=== PATIENT | male | born 1970 | race African-American/Black ===

== ENCOUNTER 2018-12-01 10:04 | Emergency (ER) | payer OTHER, SELFPAY ==
[2018-12-01] MEDS ORDERED: Oxymetazoline HCl 0.05% ( 15 ML ) ONE (10:21)
[2018-12-01 10:44] LABS: #Basophils 0.1 thou/uL (0.0-0.2); #Eosinphils 0.1 thou/uL (0.0-0.7); #Lymphocytes 0.5 thou/uL (1.20-3.40); #Neutrophils 5.5 thou/uL (1.40-6.50); %Basophils 1.6 % (0.0-1.0); %Eosinophils 1.7 % (0.0-10.0); %Lymphocytes 7.4 % (21.0-51.0); %Monocytes 13.8 % (0.0-10.0); %Neutrophils 75.5 % (42.0-75.0); Hemoglobin 15.6 g/dL (14.0-18.0); Mean Corpuscular HGB CONC 34.6 g/dL (32.0-36.0); Mean Corpuscular Hemoglobin 30.7 pg (27.0-31.0); Mean Corpuscular Volume 88.8 fL (78.0-98.0); Mean Platelet Volume 11.2 fL (7.4-10.4); Platelet Count 132 thou/uL (130-400); RBC Distribution Width 11.2 % (11.5-14.5); Red Blood Cell (RBC) Count 5.09 mill/uL (4.70-6.10); White Blood Cell (WBC) Count 7.2 thou/uL (4.8-10.8)
[2018-12-01] MEDS ORDERED: Acetaminophen 325 MG TAB ONE (10:52)
--- NOTE | 2018-12-01 10:52 | RAD ---
EXAM: Portable chest PROVIDED CLINICAL HISTORY: Chest pain COMPARISON: 08/22/2012 FINDINGS: Cardiac and mediastinal silhouette is within normal limits. No focal consolidation, pleural fluid or pneumothorax evident. IMPRESSION: No evidence for an acute cardiopulmonary process.
[2018-12-01 10:59] LABS: ALT (SGPT) 31 U/L (8-55); AST (SGOT) 32 U/L (5-34); Albumin 3.9 g/dL (3.5-5.0); Alkaline Phosphatase 114 U/L (40-150); Anion Gap 18 mmol/L (10-20); BUN (Urea Nitrogen) 15 mg/dL (8.9-20.6); Calc. Creatinine Clearance 0 mL/min (70-130); Calcium 9.7 mg/dL (7.8-10.44); Carbon Dioxide 25 mmol/L (22-29); Chloride 100 mmol/L (98-107); Estimated GFR-MDRD 57; Globulin 3.6 g/dL (2.4-3.5); Glucose 293 mg/dL (70-105); Protein, Total 7.5 g/dL (6.0-8.3); Sodium 139 mmol/L (136-145)
[2018-12-01] MEDS ORDERED: Dexamethasone 10 MG/ML VIAL ONE (11:17)
[2018-12-01] MEDS ORDERED: Ondansetron PF 4 MG/2 ML Vial ONE (11:18)
[2018-12-01] MEDS ORDERED: Dexamethasone 4 mg/ml Vial ONE (11:18)
[2018-12-01] MEDS ORDERED: Aspirin Chewable 81 MG TAB ONE (12:06)
[2018-12-01] MEDS ORDERED: Lidocaine Viscous Sol 2% 15 ml UD Cup ONE (12:06)
== END 2018-12-01 13:06 | disposition home or self-care (01) ==
LOC: SCSER 10:04
DX: B34.9 Viral infection, unspecified (principal); J02.9 Acute pharyngitis, unspecified; R04.0 Epistaxis; R06.2 Wheezing; E11.9 Type 2 diabetes mellitus without complications; E78.00 Pure hypercholesterolemia, unspecified; E11.40 Type 2 diabetes mellitus with diabetic neuropathy, unspecified; Z79.899 Other long term (current) drug therapy; Z79.84 Long term (current) use of oral hypoglycemic drugs
CPT/HCPCS: 71045; 80053; 83605; 84484; 85025; 87081; 87430; 87804; 93005; 96361; 96374; J1100; J2405; J7620

== ENCOUNTER 2022-07-17 01:21 | Emergency (ER) | payer OTHER | END 2022-07-17 02:54 | LOC: ERS 01:21 | DX: R07.89 Other chest pain (principal); I10 Essential (primary) hypertension; E11.9 Type 2 diabetes mellitus without complications; Z79.899 Other long term (current) drug therapy; Z79.84 Long term (current) use of oral hypoglycemic drugs | CPT/HCPCS: 36416; 71045; 84484; 93005 ==

== ENCOUNTER 2024-04-03 19:46 | Emergency (ER) | payer OTHER, SELFPAY ==
[2024-04-03] MEDS ORDERED: Gabapentin 100 MG CAP ONE (20:35)
[2024-04-03 20:38] LABS: Hematocrit 42.4 % (42.0-52.0); Mean Corpuscular HGB CONC 35.4 g/dL (32.0-36.0); Mean Corpuscular Hemoglobin 30.2 pg (27.0-31.0); Mean Corpuscular Volume 85.3 fL (78.0-98.0); Mean Platelet Volume 11.9 fL (7.4-10.4); Platelet Count 160 10x3/uL (130-400); Red Blood Cell (RBC) Count 4.97 mill/uL (4.70-6.10)
[2024-04-03 20:56] LABS: Troponin I Less than 0.010 ng/mL (< 0.028)
[2024-04-03 20:58] LABS: ALT (SGPT) 20 U/L (8-55); AST (SGOT) 21 U/L (5-34); Albumin 3.5 g/dL (3.5-5.0); Alkaline Phosphatase 191 U/L (40-110); Anion Gap 18 mmol/L (10-20); BUN (Urea Nitrogen) 12 mg/dL (8.4-25.7); Bilirubin, Total 0.9 mg/dL (0.2-1.2); CK (CPK) 168 U/L (30-200); Calc. Creatinine Clearance 0 mL/min (70-130); Calcium 8.9 mg/dL (7.8-10.44); Carbon Dioxide 21 mmol/L (22-29); Chloride 91 mmol/L (98-107); Eosinophils 2 % (0-10); Estimated GFR 49; Globulin 4.5 g/dL (2.4-3.5); Glucose 833 mg/dL (70-105); Large Platelets 11.6 % (0-5); Lipase 66 U/L (8-78); Lymphocytes 21 % (21-51); Magnesium 1.9 mg/dL (1.6-2.6); Monocytes 7 % (0-10); Neutrophil 67 % (42-75); Platelet Adequacy Comment Platelets Normal; Reactive Lymphocytes 2 % (0-10); Smudge Cells 61.1 %; Sodium 126 mmol/L (136-145); Tear Drops SLIGHT = 2-5 cells HPF (0-1)
[2024-04-03 21:16] LABS: Phosphorus 3.5 mg/dL (2.3-4.7)
[2024-04-03 21:52] LABS: Actual Bicarbonate (HCO3v) 25.1 mEq/L (22-28); Calcium, Ionized (venous) 1.12 mmol/L (1.16-1.32); Chloride (VBG) 94 mmol/L (98-106); Hematocrit-VBG 46 % (42.0-52.0); Hemoglobin (Hb) 15.5 g/dL (13.1-17.2); Potassium (VBG) 4.14 mmol/L (3.70-5.30); Sodium 132 mmol/L (133-146); pH (venous) 7.434 (7.32-7.43)
[2024-04-03 22:38] LABS: Bacteria/HPF None Seen HPF (None Seen); Bilirubin Negative (Negative); Blood, Urine 1+ (Negative); CAUTI Indications for Culture Pelvic or flank pain; Clarity Clear (Clear); Glucose, Urine (Dipstick) Greater than 1000 mg/dL (Negative); Ketone, Urine Negative (Negative); Leukocyte Negative Leu/uL (Negative); Nitrite Negative (Negative); Protein, Urine (Dipstick) 30 mg/dL (Neg-Trace); RBC/HPF 0-3 HPF (0-3); Specific Gravity, Urine 1.034 (1.002-1.036); Squamous Epithelial None Seen HPF (0-3); Urobilinogen Normal mg/dL (Less than 2); WBC/HPF 0-3 HPF (0-3); pH, Urine 5.5 (5.0-9.0)
[2024-04-03 22:39] LABS: Urine Culture Reflex No No
[2024-04-03 23:07] LABS: Lactic Acid 1.53 mmol/L (0.5-2.2)
[2024-04-03] MEDS ORDERED: metFORMIN 500 MG TAB PO SCH (23:45)
[2024-04-04 00:30] LABS: Anion Gap 12 mmol/L (10-20); BUN (Urea Nitrogen) 12 mg/dL (8.4-25.7); Calc. Creatinine Clearance 0 mL/min (70-130); Calcium 8.5 mg/dL (7.8-10.44); Carbon Dioxide 23 mmol/L (22-29); Chloride 99 mmol/L (98-107); Estimated GFR 70; Glucose 555 mg/dL (70-105); Potassium 3.9 mmol/L (3.5-5.1); Sodium 130 mmol/L (136-145)
== END 2024-04-04 00:47 | disposition home or self-care (01) ==
LOC: ERS 19:46
DX: E11.65 Type 2 diabetes mellitus with hyperglycemia (principal); I10 Essential (primary) hypertension
CPT/HCPCS: 36415; 36416; 70450; 71045; 72100; 80053; 81001; 82010; 82550; 82805; 83605; 83690; 83735; 83880; 83930; 84100; 84484; 85025; 93005; 94760